=== PATIENT | male | born 1995 | race African-American/Black ===

== ENCOUNTER 2017-09-21 17:41 | Emergency (ER) | payer SELFPAY ==
[2017-09-21 17:58] VITALS: BP 124/69; PULSE 53; RESP 16; TEMP 98.3; O2SAT 100
[2017-09-21 19:22] LABS: BILIRUBIN, URINE NEG (NEG); BLOOD, URINE TRACE (NEG); GLUCOSE,URINE NEG (NEG); HYALINE CAST, URINE 2 /lpf (RARE); KETONE, URINE NEG (NEG); MUCUS URINE FEW /lpf (OCC); NITRITE,URINE NEG (NEG); SQUAMOUS EPITHELIAL CELL URINE 1 /hpf (0-5); URINE COLOR YELLOW (YELLW/STRAW); URINE LEUKOCYTE ESTERASE NEG (NEG)
--- NOTE | 2017-09-21 19:51 | PD ---
HPI Chief Complaint: Complaint Time Seen by Provider: 19:43 Travel History International Travel<30 days: No Contact w/Intl Traveler<30days: No Traveled to known affect area: No History of Present Illness HPI 22-year-old black male presents emergency department for evaluation of hematuria. The patient states that he was in his normal state of health earlier today. He had the urge to go to the bathroom and when he urinated he noticed veronica hematuria. He states that that did resolve. He has had no associated fever chills. No nausea vomiting. No pain. No flank tenderness. He denies any history of hematuria in the past. He has not been ill. He has had no dysuria. Symptoms were severe initially but now are only minimal. No exacerbating or alleviating factors. PFSH Past Medical History Medical History: Denies Significant Hx Tetanus Vaccination: < 5 Years Past Surgical History Surgical History: No Previous Surgery Social History Alcohol Use: Yes Tobacco Use: Yes Substance Use: Yes (MARIJUANA) Allergies-Medications Reported Meds & Prescriptions Reported Meds & Active Scripts Active No Active Prescriptions or Reported Medications Review of Systems General / Constitutional: No: Fever Eyes: No: Visual changes HENT: No: Headaches Cardiovascular: No: Chest Pain or Discomfort Respiratory: No: Shortness of Breath Gastrointestinal: No: Nausea, Vomiting, Diarrhea, Abdominal Pain Genitourinary: Positive: Hematuria, No: Urgency, Dysuria, Nocturia, Flank Pain , Discharge Musculoskeletal: No: Pain Skin: No Rash Neurologic: No: Weakness Psychiatric: No: Depression Endocrine: No: Polydipsia Hematologic/Lymphatic: No: Easy Bruising Physical Exam Narrative GENERAL: This is a well-nourished, well-developed patient, in no apparent distress. SKIN: No rashes, ecchymoses or lesions. Warm and dry. HEAD: Atraumatic. Normocephalic. EYES: PERRL, EOMI, no discharge or injection. No scleral icterus. EARS: Clear NOSE: Nasal turbinates appear normal. THROAT: Mucosa pink and moist. Airway patent. NECK: Trachea midline. supple, moves head freely. LUNGS: Clear to auscultation. CV: Regular in rhythm. ABDOMEN: Soft nontender. No CVA tenderness EXT: No clubbing cyanosis or edema. Data Data Last Documented VS Vital Signs Date Time Temp Pulse Resp B/P (MAP) Pulse Ox O2 Delivery O2 Flow Rate FiO2 09/21/17 17:58 98.3 53 16 124/69 (87) 100 Orders Orders Urinalysis - C+S If Indicated (09/21/17 18:50) Labs Laboratory Tests Test 09/21/17 18:10 Urine Color YELLOW Urine Turbidity CLEAR Urine pH 6.0 Urine Specific [place] 1.027 Urine Protein TRACE mg/dL Urine Glucose (UA) NEG mg/dL Urine Ketones NEG mg/dL Urine Occult Blood TRACE Urine Nitrite NEG Urine Bilirubin NEG Urine Urobilinogen 2.0 MG/DL Urine Leukocyte Esterase NEG Urine RBC 7 /hpf Urine WBC 2 /hpf Urine Squamous Epithelial Cells 1 /hpf Urine Hyaline Casts 2 /lpf Urine Mucus FEW /lpf Microscopic Urinalysis Comment CULT NOT INDICATED MDM Medical Decision Making Medical Screen Exam Complete: Yes Emergency Medical Condition: Yes Medical Record Reviewed: Yes Interpretation(s) Laboratory Tests Test 09/21/17 18:10 Urine Color YELLOW Urine Turbidity CLEAR Urine pH 6.0 Urine Specific [place] 1.027 Urine Protein TRACE mg/dL Urine Glucose (UA) NEG mg/dL Urine Ketones NEG mg/dL Urine Occult Blood TRACE Urine Nitrite NEG Urine Bilirubin NEG Urine Urobilinogen 2.0 MG/DL Urine Leukocyte Esterase NEG Urine RBC 7 /hpf Urine WBC 2 /hpf Urine Squamous Epithelial Cells 1 /hpf Urine Hyaline Casts 2 /lpf Urine Mucus FEW /lpf Microscopic Urinalysis Comment CULT NOT INDICATED Differential Diagnosis Differential diagnosis: Hematuria, UTI, hemorrhagic cystitis, ureterolithiasis, renal cysts Narrative Course the patient had an episode of gross hematuria which has nearly completely resolved. The patient has only 7 RBCs in his urine. At this point he is not having any discomfort. I see no indication for any additional lab testing at this time. He is been normally young and healthy. He will be referred to urology. This is hematuria Diagnosis Primary Impression: Hematuria Qualified Codes: R31.21 - Asymptomatic microscopic hematuria Referrals: Lucio Negron DO 3 days Patient Instructions: General Instructions Additional Instructions: Rest. Increase fluids. Follow-up with urology in 3-5 days. Return to the ER if any problems. Med/Other Pt SpecificInfo: No Meds Exist/No RX given Scripts No Active Prescriptions or Reported Meds Disposition: 01 DISCHARGE HOME Condition: Stable Maynor Napier Sep 21, 2017 19:51
== END 2017-09-21 20:43 | disposition home or self-care (01) ==
LOC: NEPD 17:41
DX: R31.21 Asymptomatic microscopic hematuria (principal); F12.90 Cannabis use, unspecified, uncomplicated
CPT/HCPCS: 81001; 99283